=== PATIENT | male | born 1950 | race Two or more races ===

== ENCOUNTER 2021-11-20 20:27 | Inpatient (IN) | payer OTHER, MEDICAID ==
[~2021-11-20] VITALS: Ht 170.2 cm; Wt 92.4 kg
[2021-11-20] MEDS ORDERED: ASPirin 81 mg TAB PO ONE (21:00)
[2021-11-20 22:57] LABS: Basophils # (auto) 0 10 ^3/uL (0-0.2); Basophils % (auto) 0.3 % (0.0-2.0); Eosinophils # (auto) 0 10 ^3/uL (0-0.8); Eosinophils % (auto) 0.2 % (0.0-7.0); Hematocrit 43.5 % (41.0-53.0); Hemoglobin 15.1 g/dL (13.5-17.5); Lymphocytes # (auto) 1.5 10 ^3/uL (0.4-5.4); Lymphocytes % (auto) 14.8 % (10.0-50.0); Mean Corpuscular Hemoglobin 29.9 pg (28.0-32.0); Mean Corpuscular Hgb Conc. 34.6 g/dL (32.0-36.0); Mean Corpuscular Volume 86.3 fL (80.0-100.0); Monocytes # (auto) 0.7 10 ^3/uL (0-1.3); Monocytes % (auto) 7.4 % (0.0-12.0); Neutrophils # (auto) 7.7 10 ^3/uL (1.6-8.6); Neutrophils % (auto) 77.3 % (37.0-80.0); Nucleated Red Blood Cells % 0.3 %; Red Blood Cells 5.04 10^6/uL (4.5-5.90); Red Cell Distribution Width 13.4 % (11.8-14.3)
[2021-11-20 23:18] LABS: Albumin 4.3 g/dL (3.4-5.0); BUN/Creatinine Ratio 13.1; Calcium 9.3 mg/dL (8.5-10.1); Potassium 3.2 mmol/L (3.5-5.1)
[2021-11-20 23:21] LABS: Bilirubin, Total 0.4 mg/dL (0.2-1.0); Total Protein 7.7 g/dL (6.4-8.2)
[2021-11-21] MEDS ORDERED: DOCUSATE SOD 100 MG CAP PO PRN (06:15)
[2021-11-21] MEDS ORDERED: ONDANSETRON HCL 4 MG/2 ML VIAL IV PRN (06:15)
[2021-11-21] MEDS ORDERED: MORPHINE SULFATE INJ 2 MG/ml SYRG IV PRN ×2 (06:15→06:30)
[2021-11-21] MEDS ORDERED: NITROGLYCERIN 0.4 MG SL TAB SL PRN (06:30)
[2021-11-21] MEDS ORDERED: POTASSIUM CHL 20 Meq TABLET PO ONE (06:45)
[2021-11-21 07:24] LABS: Basophils # (auto) 0.1 10 ^3/uL (0-0.2); Basophils % (auto) 0.9 % (0.0-2.0); Eosinophils # (auto) 0.1 10 ^3/uL (0-0.8); Eosinophils % (auto) 0.6 % (0.0-7.0); Hematocrit 41.2 % (41.0-53.0); Hemoglobin 14.4 g/dL (13.5-17.5); Lymphocytes # (auto) 1.8 10 ^3/uL (0.4-5.4); Lymphocytes % (auto) 20.1 % (10.0-50.0); Mean Corpuscular Hemoglobin 30.1 pg (28.0-32.0); Mean Corpuscular Volume 86.1 fL (80.0-100.0); Monocytes # (auto) 0.7 10 ^3/uL (0-1.3); Monocytes % (auto) 7.3 % (0.0-12.0); Neutrophils # (auto) 6.5 10 ^3/uL (1.6-8.6); Neutrophils % (auto) 71.1 % (37.0-80.0); Nucleated Red Blood Cells % 0.1 %; Red Blood Cells 4.78 10^6/uL (4.5-5.90); Red Cell Distribution Width 13.5 % (11.8-14.3); White Blood Cell 9.2 10^3/uL (4.4-10.8)
[2021-11-21 07:34] LABS: Potassium 3.5 mmol/L (3.5-5.1)
[2021-11-21 07:41] LABS: Albumin 3.9 g/dL (3.4-5.0); BUN/Creatinine Ratio 17.3; Bilirubin, Total 0.5 mg/dL (0.2-1.0); Calcium 8.7 mg/dL (8.5-10.1)
[2021-11-21 07:47] LABS: Cholesterol 170 mg/dL (< 200); HDL Cholesterol 33 mg/dL (40-59); LDL Cholesterol 112 mg/dL (< 100); Triglycerides 194 mg/dL (< 150)
[2021-11-21] MEDS: FAMOTIDINE (10MG/ML) 2ML VL IV SCH (10:00)
[2021-11-21] MEDS: ASPirin 81 mg TAB PO SCH (10:10)
[2021-11-21] MEDS: ENOXAPARIN SOD 40 MG/0.4 ML SYRINGE SC SCH (10:10)
[2021-11-21] MEDS: HCTZ 25 MG TAB PO SCH (10:11)
[2021-11-21] MEDS: BENAZEPRIL HCL 10 MG TAB PO SCH (10:11)
[2021-11-21] MEDS: amLODIPine BESYLATE 5 MG TAB PO SCH (10:12)
[2021-11-21] MEDS: hydrALAZINE HCL 20 MG/ML VL IV PRN (12:01)
[2021-11-21] MEDS ORDERED: HYDR25TA5 PO (12:19)
[2021-11-21] MEDS ORDERED: BENA40TA8 PO (12:19)
[2021-11-21] MEDS ORDERED: AMLO-496 PO (12:19)
[2021-11-21] MEDS ORDERED: ATOR10TA52 PO (12:19)
[2021-11-21 12:37] VITALS: BP 159/103
[2021-11-21] MEDS: HYDROcodone-ACET 5/325MG TAB PO PRN ×2 (12:55→17:59)
[2021-11-21 13:00] VITALS: BP 159/103
[2021-11-21 14:55] VITALS: BP 159/103
[2021-11-21] MEDS: SODIUM CHLOR 0.9% PF (SALINE LOCK) 10ML VIAL/SYR IV SCH ×2 (16:15→22:02)
[2021-11-21 17:13] VITALS: BP 140/95
[2021-11-21 22:00] VITALS: BP 150/101
[2021-11-21] MEDS: ACETAMINOPHEN 325 MG TAB PO PRN (22:03)
[2021-11-21] MEDS: ATORVASTATIN 20 MG TAB PO SCH (22:03)
[2021-11-22 05:00] VITALS: BP 145/86
[2021-11-22] MEDS: SODIUM CHLOR 0.9% PF (SALINE LOCK) 10ML VIAL/SYR IV SCH ×3 (05:37→21:16)
[2021-11-22 07:44] LABS: Basophils # (auto) 0.1 10 ^3/uL (0-0.2); Basophils % (auto) 0.8 % (0.0-2.0); Eosinophils # (auto) 0.2 10 ^3/uL (0-0.8); Eosinophils % (auto) 1.8 % (0.0-7.0); Hematocrit 45.5 % (41.0-53.0); Hemoglobin 16.1 g/dL (13.5-17.5); Lymphocytes # (auto) 2.7 10 ^3/uL (0.4-5.4); Lymphocytes % (auto) 28.9 % (10.0-50.0); Mean Corpuscular Hemoglobin 30.3 pg (28.0-32.0); Mean Corpuscular Hgb Conc. 35.4 g/dL (32.0-36.0); Mean Corpuscular Volume 85.5 fL (80.0-100.0); Monocytes # (auto) 0.9 10 ^3/uL (0-1.3); Monocytes % (auto) 9.1 % (0.0-12.0); Neutrophils # (auto) 5.6 10 ^3/uL (1.6-8.6); Neutrophils % (auto) 59.4 % (37.0-80.0); Nucleated Red Blood Cells % 0.1 %; Red Blood Cells 5.32 10^6/uL (4.5-5.90); Red Cell Distribution Width 13.3 % (11.8-14.3); White Blood Cell 9.5 10^3/uL (4.4-10.8)
[2021-11-22 08:00] LABS: Albumin 3.9 g/dL (3.4-5.0); Calcium 8.9 mg/dL (8.5-10.1); Potassium 3.1 mmol/L (3.5-5.1)
[2021-11-22 08:03] LABS: BUN/Creatinine Ratio 18.2; Bilirubin, Total 0.6 mg/dL (0.2-1.0); Total Protein 7.5 g/dL (6.4-8.2)
[2021-11-22] MEDS: FAMOTIDINE (10MG/ML) 2ML VL IV SCH (08:35)
[2021-11-22] MEDS: ASPirin 81 mg TAB PO SCH (08:36)
[2021-11-22] MEDS: HCTZ 25 MG TAB PO SCH (08:36)
[2021-11-22] MEDS: amLODIPine BESYLATE 5 MG TAB PO SCH (08:37)
[2021-11-22] MEDS: BENAZEPRIL HCL 10 MG TAB PO SCH (08:37)
[2021-11-22] MEDS: ENOXAPARIN SOD 40 MG/0.4 ML SYRINGE SC SCH (08:38)
[2021-11-22] MEDS: SPIRONOLACTONE 25 MG TAB PO SCH (08:43)
[2021-11-22 09:00] VITALS: BP 157/99
[2021-11-22] MEDS ORDERED: POTASSIUM CHL 20 Meq TABLET PO ONE (11:15)
[2021-11-22] MEDS ORDERED: POTASSIUM EFFERVESENT TAB 25 MEQ PO ONE (11:45)
[2021-11-22] MEDS: ACETAMINOPHEN 325 MG TAB PO PRN ×2 (12:43→19:36)
[2021-11-22] MEDS: hydrALAZINE HCL 20 MG/ML VL IV PRN (12:45)
[2021-11-22 13:00] VITALS: BP 149/101
[2021-11-22 17:07] VITALS: BP 130/84
[2021-11-22] MEDS: ATORVASTATIN 20 MG TAB PO SCH (21:16)
[2021-11-22 22:37] VITALS: BP 146/95
[2021-11-23 05:00] VITALS: BP 136/96
[2021-11-23] MEDS: SODIUM CHLOR 0.9% PF (SALINE LOCK) 10ML VIAL/SYR IV SCH ×3 (06:17→23:57)
[2021-11-23] MEDS ORDERED: ADENOSINE 77 MG in GIVE UN-DILUTED 0 ML IV ONE (08:35)
[2021-11-23] MEDS: hydrALAZINE HCL 20 MG/ML VL IV PRN (08:50)
[2021-11-23 09:00] VITALS: BP 149/105
[2021-11-23] MEDS: FAMOTIDINE (10MG/ML) 2ML VL IV SCH (09:06)
[2021-11-23 09:15] VITALS: BP 139/103
[2021-11-23] MEDS: ASPirin 81 mg TAB PO SCH (10:09)
[2021-11-23] MEDS: SPIRONOLACTONE 25 MG TAB PO SCH (10:10)
[2021-11-23] MEDS: HCTZ 25 MG TAB PO SCH (10:10)
[2021-11-23] MEDS: BENAZEPRIL HCL 10 MG TAB PO SCH (10:11)
[2021-11-23] MEDS: amLODIPine BESYLATE 5 MG TAB PO SCH (10:12)
[2021-11-23] MEDS: ENOXAPARIN SOD 40 MG/0.4 ML SYRINGE SC SCH (10:12)
[2021-11-23 13:15] VITALS: BP 142/92
[2021-11-23] MEDS: HYDROcodone-ACET 5/325MG TAB PO PRN (14:31)
[2021-11-23 17:00] VITALS: BP_SYST 111; BP_SYST 144; BP_DIAS 65; BP_DIAS 92
[2021-11-23 22:00] VITALS: BP 126/89
[2021-11-23] MEDS: ATORVASTATIN 20 MG TAB PO SCH (23:57)
[2021-11-23] MEDS: SODIUM CHLORIDE 0.9% 1,000 ML IV SCH (23:57)
[2021-11-24 05:00] VITALS: BP 140/100
[2021-11-24] MEDS: SODIUM CHLORIDE 0.9% 1,000 ML IV SCH ×3 (05:45→21:22)
[2021-11-24] MEDS: SODIUM CHLOR 0.9% PF (SALINE LOCK) 10ML VIAL/SYR IV SCH ×3 (05:46→21:22)
[2021-11-24 09:00] VITALS: BP 138/93
[2021-11-24] MEDS: ENOXAPARIN SOD 40 MG/0.4 ML SYRINGE SC SCH (10:00)
[2021-11-24] MEDS: HCTZ 25 MG TAB PO SCH (10:52)
[2021-11-24] MEDS: ASPirin 81 mg TAB PO SCH (10:52)
[2021-11-24] MEDS: FAMOTIDINE (10MG/ML) 2ML VL IV SCH (10:52)
[2021-11-24] MEDS: SPIRONOLACTONE 25 MG TAB PO SCH (10:52)
[2021-11-24] MEDS: BENAZEPRIL HCL 10 MG TAB PO SCH (10:54)
[2021-11-24] MEDS: amLODIPine BESYLATE 5 MG TAB PO SCH (10:54)
[2021-11-24 13:00] VITALS: BP 138/96
[2021-11-24] MEDS: HYDROcodone-ACET 5/325MG TAB PO PRN ×2 (15:47→22:28)
[2021-11-24 17:22] VITALS: BP 152/76
[2021-11-24] MEDS: ATORVASTATIN 20 MG TAB PO SCH (21:22)
[2021-11-24 21:54] VITALS: BP 136/88
[2021-11-25] VITALS (14 sets, daily range): BP systolic 120–156; BP diastolic 64–104
[2021-11-25] MEDS: hydrALAZINE HCL 20 MG/ML VL IV PRN (04:09)
[2021-11-25] MEDS: SODIUM CHLORIDE 0.9% 1,000 ML IV SCH ×3 (06:06→20:55)
[2021-11-25] MEDS: SODIUM CHLOR 0.9% PF (SALINE LOCK) 10ML VIAL/SYR IV SCH ×3 (06:07→20:55)
[2021-11-25 07:37] LABS: Basophils # (auto) 0.1 10 ^3/uL (0-0.2); Basophils % (auto) 0.5 % (0.0-2.0); Eosinophils # (auto) 0.2 10 ^3/uL (0-0.8); Hematocrit 47.4 % (41.0-53.0); Hemoglobin 16.6 g/dL (13.5-17.5); Lymphocytes # (auto) 2.2 10 ^3/uL (0.4-5.4); Lymphocytes % (auto) 20.6 % (10.0-50.0); Mean Corpuscular Volume 85.8 fL (80.0-100.0); Monocytes % (auto) 9.6 % (0.0-12.0); Neutrophils # (auto) 7.1 10 ^3/uL (1.6-8.6); Neutrophils % (auto) 67.3 % (37.0-80.0); Nucleated Red Blood Cells % 0.2 %; Red Blood Cells 5.53 10^6/uL (4.5-5.90); Red Cell Distribution Width 13.5 % (11.8-14.3); White Blood Cell 10.6 10^3/uL (4.4-10.8)
[2021-11-25 07:54] LABS: Partial Thromboplastin Time 29.8 sec (23.6-33.0)
[2021-11-25 07:55] LABS: BUN/Creatinine Ratio 18.9; Calcium 8.8 mg/dL (8.5-10.1); Potassium 3.7 mmol/L (3.5-5.1)
[2021-11-25] MEDS: HYDROcodone-ACET 5/325MG TAB PO PRN ×3 (09:04→22:41)
[2021-11-25] MEDS: BENAZEPRIL HCL 10 MG TAB PO SCH (09:43)
[2021-11-25] MEDS: ASPirin 81 mg TAB PO SCH (09:44)
[2021-11-25] MEDS: FAMOTIDINE (10MG/ML) 2ML VL IV SCH (09:44)
[2021-11-25] MEDS: amLODIPine BESYLATE 5 MG TAB PO SCH (09:44)
[2021-11-25] MEDS: SPIRONOLACTONE 25 MG TAB PO SCH (09:50)
[2021-11-25] MEDS: HCTZ 25 MG TAB PO SCH (09:50)
[2021-11-25] MEDS: ENOXAPARIN SOD 40 MG/0.4 ML SYRINGE SC SCH (09:51)
[2021-11-25] MEDS ORDERED: HEPARIN SODIUM (PORCINE) 5000 UNITS/ML 1ML VIAL ONE (15:30)
[2021-11-25] MEDS ORDERED: ANGIOMAX 250 MG VIAL IV ONE (15:30)
[2021-11-25] MEDS ORDERED: MIDAZOLAM HCL 2MG/2ML 2ml VIAL (1mg/ml) ONE (15:30)
[2021-11-25] MEDS ORDERED: fentaNYL CITRATE 100 MCG/2 ML VL ONE (15:30)
[2021-11-25] MEDS ORDERED: SODIUM CHL 0.9% 0 ML ONE (15:31)
[2021-11-25] MEDS ORDERED: IODIXANOL 320MG/ML 100ML BTL IV ONE (15:31)
[2021-11-25] MEDS ORDERED: VERAPAMIL 2.5MG/ML INJ 2ML VIAL IV ONE (15:42)
[2021-11-25] MEDS: ATORVASTATIN 20 MG TAB PO SCH (20:55)
[2021-11-26 05:00] VITALS: BP 125/86
[2021-11-26] MEDS: SODIUM CHLOR 0.9% PF (SALINE LOCK) 10ML VIAL/SYR IV SCH (05:15)
[2021-11-26] MEDS: SODIUM CHLORIDE 0.9% 1,000 ML IV SCH (05:15)
[2021-11-26] MEDS ORDERED: BENA40TA PO (08:39)
[2021-11-26] MEDS ORDERED: SPIR25TA8 PO (08:39)
[2021-11-26 09:00] VITALS: BP 125/86
[2021-11-26] MEDS: ASPirin 81 mg TAB PO SCH (09:41)
[2021-11-26] MEDS: BENAZEPRIL HCL 10 MG TAB PO SCH (09:44)
[2021-11-26] MEDS: amLODIPine BESYLATE 5 MG TAB PO SCH (09:45)
[2021-11-26] MEDS: ENOXAPARIN SOD 40 MG/0.4 ML SYRINGE SC SCH (09:46)
[2021-11-26] MEDS: FAMOTIDINE (10MG/ML) 2ML VL IV SCH (09:47)
[2021-11-26] MEDS: HCTZ 25 MG TAB PO SCH (09:49)
[2021-11-26] MEDS: SPIRONOLACTONE 25 MG TAB PO SCH (09:49)
[2021-11-26 12:12] VITALS: BP 125/86
== END 2021-11-26 15:28 | disposition home or self-care (01) | DRG 287 ==
LOC: ER 20:27 → TELE 11-21 06:21 → TELE-CENTR 11-21 10:48
PROVIDERS: ADMIT Nurse Practitioner Family; ATTEND Family Medicine
PROC: 4A023N7 Measurement of Cardiac Sampling and Pressure, Left Heart, Percutaneous Approach (ICD-10-PCS; principal; 2021-11-25)
PROC: B211YZZ Fluoroscopy of Multiple Coronary Arteries using Other Contrast (ICD-10-PCS; 2021-11-25)
PROC: B215YZZ Fluoroscopy of Left Heart using Other Contrast (ICD-10-PCS; 2021-11-25)
DX: R07.89 Other chest pain (principal); I16.0 Hypertensive urgency; I44.0 Atrioventricular block, first degree; E66.9 Obesity, unspecified; E87.6 Hypokalemia; R73.03 Prediabetes; E78.5 Hyperlipidemia, unspecified; K21.9 Gastro-esophageal reflux disease without esophagitis; E78.00 Pure hypercholesterolemia, unspecified; I10 Essential (primary) hypertension; Z20.822 Contact with and (suspected) exposure to COVID-19; Z79.82 Long term (current) use of aspirin; Z68.31 Body mass index [BMI] 31.0-31.9, adult
CPT/HCPCS: 36415; 70450; 71046; 78452; 80048; 80053; 80061; 83036; 83735; 84443; 84484; 85025; 85610; 85730; 93005; 93017; 93306; 93458; 96372; 99152; 99153; G0378; J0153; J2250; J3490; Q9967

== ENCOUNTER → 2025-02-14 | Day surgery (SDC) | payer MEDICARE, MEDICAID ==
[2025-02-08 15:36] LABS: Hematocrit 42.5 % (41.0-53.0); Hemoglobin 14.7 g/dL (13.5-17.5); Mean Corpuscular Hemoglobin 28.9 pg (28.0-32.0); Mean Corpuscular Volume 83.9 fL (80.0-100.0); Nucleated Red Blood Cells % 0.0 %
[2025-02-08 15:38] LABS: Urine Protein, UAD Negative (Negative)
[2025-02-08 15:47] LABS: INR 1.0 (0.9-1.15); Partial Thromboplastin Time 27.9 SEC (24.5-34.5); Prothrombin Time 10.6 sec (9.3-11.8)
[2025-02-08 15:49] LABS: Alanine Aminotransferase 18 U/L (7-40); Albumin 4.4 g/dL (3.2-4.8); Alkaline Phosphatase 88 U/L (46-116); Anion Gap 8 (5-15); BUN/Creatinine Ratio 9.5 (10.0-20.0); Blood Urea Nitrogen 12 mg/dL (9-23); Calcium 9.1 mg/dL (8.7-10.4); Carbon Dioxide 27 mmol/L (20-31); Potassium 3.8 mmol/L (3.5-5.1); Sodium 145 mmol/L (136-145); Total Protein 7.2 g/dL (5.7-8.2)
[2025-02-08 15:50] LABS: Bilirubin, Total 0.5 mg/dL (0.2-1.0); Chloride 110 mmol/L (98-107); Glucose 134 mg/dL (74-106)
[~2025-02-14] VITALS: Ht 170.2 cm; Wt 89.8 kg
[~2025-02-14] MED LIST: AMLO1TAB23 PO; ATOR10TA52 PO; EMPA1TAB3 PO; FREM225I2 SC; FURO1TAB33 PO; GABA-1250 PO; LIDOCAINE 1% INJ PF 5ML AMP ONE; LIDOCAINE 2% (LOCAL ANESTH.) PF 5ml SDV ONE; LISI40TA16 PO; MISC-2030 PO; OMEP20TA PO; PROPOFOL 10 MG/ML 20 ML IV ONE; TAMS1CAP25 PO
[2025-02-14 09:20] VITALS: TEMP 98.2
[2025-02-14 10:33] VITALS: PULSE 66; RESP 13; O2SAT 99
--- NOTE | 2025-02-14 10:35 | DVHHP2 ---
GI H&P Pre-Op Assessment Date: 02/14/25 Chief complaint: colon cancer screening, bloating HPI: per clinic note Past medical history: per clinic note Past surgical history: per clinic note Family history: per clinic note Physical exam: General: NAD, AAOX3 HEENT: PERRL, no scleral icterus, normal hearing, gums without lesions or bleeding, oropharynx clear without erythema or exudate. Neck: Supple without enlargement of the thyroid, or lymphadenopathy. Chest: Normal size and shape, no tenderness, lung tripathi clear to auscultation and percussion, nonlabored breathing. Heart: RRR, no murmur Abdomen: non-distended, no tenderness to palpation, +BS, no hepatosplenomegaly Extremities: no edema Neurological: CN II-XII intact, sensation intact in all extremities, 5+ strength in all extremities Skin: No rashes, No jaundice Assessment: - colon cancer screening - bloating Plan: - EGD - Colonoscopy - Risks (bleeding, infection, perforation, reaction to sedation medications and cardiopulmonary arrest) and benefit of the procedure were explained to patient. Patient agrees to undergo the procedure. MARCOS GILES MD Feb 14, 2025 10:35
--- NOTE | 2025-02-14 10:38 | DVHOP2 ---
Operative Report DATE OF OPERATION: 02/14/25 PROCEDURE: Upper Endoscopy. PREOPERATIVE INDICATION: The patient is a 74 -year-old male undergoing endoscopy for bloating. POSTOPERATIVE DIAGNOSES: 1. Mild gastritis 2. 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 PROCEDURE PERFORMED BY: Derick Weldon SCOPE: Olympus videoendoscope. ASA CLASS: 3 PREOPERATIVE MEDICATIONS: MAC with Osman PAN GREASER PROCEDURE IN DETAIL: After obtaining an informed consent, the patient was placed on his back. The patient was then sedated with the above medications. A bite block was placed between his teeth. The endoscope was then passed through the oropharynx, into the esophagus, and through the stomach and pylorus up to the second and third part of the duodenum. The duodenum was normal in appearance. There was mild gastritis. Gastric biopsies were obtained using cold biopsies. The GE junction was at 34 cm. There was a possible Renteria's esophagus that is 4 cm long at the GE junction. Biopsies of the area were obtained using cold forceps. The endoscope was then withdrawn. The patient tolerated the procedure well without difficulty. COMPLICATIONS : None SPECIMENS: Gastric biopsies, esophageal biopsy DISPOSITION: D/C to home PLAN: 1. Await for biopsy result DERICK WELDON MD Feb 14, 2025 10:38
--- NOTE | 2025-02-14 10:39 | DVHDS2 ---
Physician Discharge Progress N Final Diagnosis: Gastritis, possible Renteria's esophagus Diverticulosis, internal hemorrhoids Operations or Procedures: Operations or Procedures EGD with cold biopsies Colonoscopy Condition on Discharge: Good Disposition: Home Discharge Instructions: Diet: Regular Activity: No Restrictions, As Tolerated Medications: Resume with previous home medications Follow Up Care: Discharge Statement: "Patient was advised to return to the ER or call 911 if any headaches, dizziness, shortness of breath, chest pain, abdominal pain, bleeding, fevers, or worsening of medical condition. Patient was counseled about treatment plan, medications, possible side effects, patientverbalized understanding. All questions were answered to the best of my ability. This discharge took greater then 30 minutes in planning, reviewing documentation, counseling the patient, and discussing with other team members." MARCOS GILES MD Feb 14, 2025 10:39
--- NOTE | 2025-02-14 10:39 | DVHOP2 ---
Operative Report DATE OF OPERATION: 02/14/25 PROCEDURE: Colonoscopy. PREOPERATIVE INDICATION: The patient is a 74 -year-old male undergoing colonoscopy for colon cancer screening POSTOPERATIVE DIAGNOSES: 1. Mild scattered diverticulosis with mostly in the left colon. 2. Internal hemorrhoids. PROCEDURE PERFORMED BY: Derick Weldon M.D. SCOPE: Olympus videocolonoscope. ASA CLASS: 3 PREOPERATIVE MEDICATIONS: MAC with Osman LINSEED CAKE TRIMMER PROCEDURE IN DETAIL: After obtaining an informed consent, the patient was placed on left lateral decubitus position. He was then sedated with the above medications. A rectal examination was performed that was normal. The colonoscope was then passed through the anus into the rectosigmoid and through the descending, transverse, and ascending colon up to the cecum with visualization of the appendiceal orifice, base of the cecum and the ileocecal valve. No mass or polyp was observed. There was mild scattered diverticulosis with mostly in the left colon. There were internal hemorrhoids. The colonoscope was then withdrawn. The patient tolerated the procedure well without difficulty. WITHDRAWAL TIME: 6 minutes QUALITY OF THE PREP: [place] Bowel Prep score: 4 COMPLICATIONS : None SPECIMENS: None DISPOSITION: D/C to home PLAN: 1. Repeat colonoscopy in five years for colon cancer screening due to suboptimal prep. DERICK WELDON MD Feb 14, 2025 10:39
[2025-02-14] MEDS: hydrALAZINE HCL 20 MG/ML VL IV ONE (11:10)
[2025-02-14 11:30] VITALS: BP 169/97; PULSE 62; RESP 16; O2SAT 97
== END | disposition home or self-care (01) ==
LOC: GI 09:05
PROVIDERS: ATTEND Internal Medicine Gastroenterology
DX: R14.0 Abdominal distension (gaseous) (principal); K57.30 Diverticulosis of large intestine without perforation or abscess without bleeding; K64.8 Other hemorrhoids; K29.50 Unspecified chronic gastritis without bleeding; K31.A19 Gastric intestinal metaplasia without dysplasia, unspecified site; K22.70 Barrett's esophagus without dysplasia; R14.1 Gas pain; G47.33 Obstructive sleep apnea (adult) (pediatric); I10 Essential (primary) hypertension; E11.9 Type 2 diabetes mellitus without complications; E78.5 Hyperlipidemia, unspecified; Z79.899 Other long term (current) drug therapy; Z98.890 Other specified postprocedural states
CPT/HCPCS: 36415; 43239; 45378; 80053; 81001; 82962; 85025; 85610; 85730; 88305; 88342; J0360; J2003; J2704; J7030